=== PATIENT | female | born 1955 | race Native Hawaiian/Other Pacific Islander ===

== ENCOUNTER 2016-11-03 00:16 | Emergency (ER) | payer SELFPAY ==
[2016-11-03 00:44] VITALS: BP 163/99
--- NOTE | 2016-11-03 01:40 | Emergency Department Report ---
Chief Complaint: Recheck/Abnormal Lab/Rx Stated Complaint: MEDICATION REFILL Time Seen by Provider: 11/03/16 01:09 - HPI History of Present Illness: 61-year-old female presents to ED for medication refill. Patient states she is a diabetic on metformin 1000 mg twice a day and past medical history of hypertention on Diovan 160 mg twice a day. Patient has no complaints today she just wants medication refill. Patient's Accu-Chek in triage is 191. Patient states she's been out of her medication for about a week. And is unable to make it to her primary care physician. She states she is here visiting her son who is admitted here and decided to refill her medication. She denies fevers/chills/nausea/vomiting/headache/blurred vision or any other problems - ROS Review of Systems: As noted in history - Exam Vital Signs: Vital Signs 11/03/16 00:32 Temperature 98.4 F Pulse Rate 84 Respiratory 20 Rate Blood Pressure 163/99 O2 Sat by Pulse 100 Oximetry Physical Exam: GENERAL: Alert and oriented x3, no apparent distress, Normal Gait, atraumatic. HEAD: Head is normocephalic and a-traumatic. EYES: Extra ocular muscles are intact. Pupils are equal, round, and reactive to light and accommodation. LUNGS: Symetrical with respiration, No wheezing, no rales or crackles, CTAB. HEART: S1, S2 present, regular rate and rhythm without murmur, no rubs, no gallops. ABDOMEN: No organomegaly was noted,Positive bowel sounds, soft, and non- distended. . Nontender to palpation on all Quadrants, NO CVA tenderness. EXTREMITIES/MUSCULOSKELETAL: No cyanosis, clubbing, rash, lesions or edema. Full ROM bilaterally. UE/LE Pulses 2+ bilaterally. Capillary refill 2+ bilaterally NEUROLOGIC: The patient is cooperative with no focal neurologic deficits. SKIN: Warm and dry, No lesions, No ulceration or induration present. MSE screening note: Focused history and physical exam performed. Due to findings the following was ordered: ED Medical Decision Making - Medical Decision Making 7-year-old female presents for medication refill Discuss with patient that medication will be refilled at this time. Discussed f /u With her primary care physician. Patient states she will vital signs are normal and she is in no acute distress ED Disposition for MSE Clinical Impression: Medication refill Disposition: DISCHARGED TO HOME OR SELFCARE Is pt being admited?: No Does the pt Need Aspirin: No Condition: Stable Instructions: Metformin (By mouth), Valsartan (By mouth) Prescriptions: Metformin HCl [Metformin HCl ER] 1,000 mg PO BID #60 tab Valsartan [Diovan] 160 mg PO BID #60 tablet Referrals: [facility] [place][Note 3] [Outside] - 3-5 Days [facility] [Outside] - 3-5 Days [facility] [Outside] - 3-5 Days Forms: Work/School Release Form(ED) Time of Disposition: 01:42
== END 2016-11-03 01:50 | disposition home or self-care (01) ==
LOC: ED 00:16
DX: Z76.0 Encounter for issue of repeat prescription (principal); I10 Essential (primary) hypertension
CPT/HCPCS: 82962; 99282